=== PATIENT | male | born 1955 | race Caucasian/White ===

== ENCOUNTER → 2023-04-15 12:37 | Outpatient (REF) | payer OTHER, SELFPAY | LOC: HWRCS 12:37 | PROVIDERS: ATTENDING PHYSICIAN Internal Medicine | DX: R94.31 Abnormal electrocardiogram [ECG] [EKG] (principal) | CPT/HCPCS: 93306 ==

== ENCOUNTER → 2023-09-08 13:41 | Outpatient (REF) | payer SELFPAY | LOC: RAD 13:41 | PROVIDERS: ATTENDING PHYSICIAN Internal Medicine; REFERRING PHYSICIAN Internal Medicine Cardiovascular Disease | DX: E78.5 Hyperlipidemia, unspecified (principal); I70.90 Unspecified atherosclerosis | CPT/HCPCS: 75571 ==

== ENCOUNTER → 2024-04-19 12:36 | Outpatient (REF) | payer OTHER, SELFPAY | LOC: HWRCS 12:36 | PROVIDERS: ATTENDING PHYSICIAN Internal Medicine Cardiovascular Disease; FAMILY PHYSICIAN Internal Medicine | DX: E78.2 Mixed hyperlipidemia (principal); I10 Essential (primary) hypertension; I77.810 Thoracic aortic ectasia; M32.0 Drug-induced systemic lupus erythematosus | CPT/HCPCS: 93306 ==

== ENCOUNTER → 2025-01-06 06:46 | Outpatient (REF) | payer OTHER, SELFPAY | LOC: RSP 06:46 | PROVIDERS: ATTENDING PHYSICIAN Dermatology; FAMILY PHYSICIAN Internal Medicine | DX: M33.13 Other dermatomyositis without myopathy (principal) | CPT/HCPCS: 88738; 94010; 94727; 94729 ==